=== PATIENT | male | born 1970 | race African-American/Black ===

== ENCOUNTER 2022-10-06 05:27 | Day surgery (SDC) | payer OTHER ==
[2022-10-05 15:49] VITALS: BMI 25.7
[2022-10-06 11:04] VITALS: TEMP 98
[2022-10-06 11:10] VITALS: RESP 18
[2022-10-06 12:14] VITALS: BP 131/85; PULSE 51
== END 2022-10-06 12:11 | disposition home or self-care (01) ==
LOC: JASU-ENDO 05:27
PROVIDERS: ATTEND Internal Medicine Gastroenterology
PROC: 0DB98ZX Excision of Duodenum, Via Natural or Artificial Opening Endoscopic, Diagnostic (ICD-10-PCS; 2022-10-06)
PROC: 0DB68ZX Excision of Stomach, Via Natural or Artificial Opening Endoscopic, Diagnostic (ICD-10-PCS; 2022-10-06)
PROC: 0DBK8ZX Excision of Ascending Colon, Via Natural or Artificial Opening Endoscopic, Diagnostic (ICD-10-PCS; principal; 2022-10-06 09:30)
DX: Z12.11 Encounter for screening for malignant neoplasm of colon (principal); D12.2 Benign neoplasm of ascending colon; K64.8 Other hemorrhoids; K63.89 Other specified diseases of intestine; K29.50 Unspecified chronic gastritis without bleeding
CPT/HCPCS: 88305-TC; 88342-TC